=== PATIENT | male | born 1985 | race Hispanic/Latino ===

== ENCOUNTER 2018-11-07 08:44 | Emergency (ER) | payer OTHER ==
[2018-11-07] MEDS ORDERED: Ketorolac Tromethamine 30 MG/ML VIAL ONE (09:31)
[2018-11-07] MEDS ORDERED: Adacel (T-DAP) 0.5 ML SYRINGE ONE (09:31)
== END 2018-11-07 09:49 | disposition home or self-care (01) ==
LOC: ERS 08:44
DX: T20.00XA Burn of unspecified degree of head, face, and neck, unspecified site, initial encounter (principal); T22.032A Burn of unspecified degree of left upper arm, initial encounter; X08.8XXA Exposure to other specified smoke, fire and flames, initial encounter; Y92.511 Restaurant or cafe as the place of occurrence of the external cause
CPT/HCPCS: 90471; 90715; 96372; J1885